=== PATIENT | male | born 1945 | race Caucasian/White ===

== ENCOUNTER → 2020-07-18 | Outpatient (CLI) | payer MEDICARE ==
[2020-07-18 12:06] LABS: HEMATOCRIT 56 % (40-54); HEMOGLOBIN 19.6 G/DL (13.3-17.7); MEAN CORPUSCULAR HEMOGLOBIN 33 PG (25-34); MEAN CORPUSCULAR HGB CONC 35 G/DL (32-36); MEAN CORPUSCULAR VOLUME 93 FL (80-99); MEAN PLATELET VOLUME 8.5 FL (7.4-10.4); PLATELET COUNT 197 10^3/uL (130-400); WHITE BLOOD COUNT 5.3 10^3/uL (4.3-11.0)
[2020-07-18 12:07] LABS: BASOPHILS % (AUTO) 1 % (0-10); EOSINOPHILS # (AUTO) 0.1 10^3/uL (0.0-0.3); EOSINOPHILS % (AUTO) 2 % (0-10); LYMPHOCYTES # (AUTO) 2.7 X 10^3 (1.0-4.0); LYMPHOCYTES % (AUTO) 50 % (12-44); MONOCYTES # (AUTO) 0.6 X 10^3 (0.0-1.0); MONOCYTES % (AUTO) 11 % (0-12); NEUTROPHILS # (AUTO) 1.9 X 10^3 (1.8-7.8); NEUTROPHILS % (AUTO) 35 % (42-75)
== END ==
LOC: LAB FS 11:37
PROVIDERS: ATTEND Internal Medicine Hematology & Oncology
DX: R71.8 Other abnormality of red blood cells (principal)
CPT/HCPCS: 36415; 85025

== ENCOUNTER 2020-08-20 12:58 | Outpatient (RCR) | payer MEDICARE ==
[2020-05-29 10:45] LABS: BASOPHILS % (AUTO) 1 % (0-10); EOSINOPHILS # (AUTO) 0.1 10^3/uL (0.0-0.3); EOSINOPHILS % (AUTO) 2 % (0-10); HEMATOCRIT 59 % (40-54); LYMPHOCYTES # (AUTO) 2.8 10^3/uL (1.0-4.0); LYMPHOCYTES % (AUTO) 42 % (12-44); MEAN CORPUSCULAR HEMOGLOBIN 32 pg (25-34); MEAN CORPUSCULAR HGB CONC 34 g/dL (32-36); MEAN CORPUSCULAR VOLUME 96 fL (80-99); MEAN PLATELET VOLUME 8.6 fL (9.0-12.2); MONOCYTES # (AUTO) 0.7 10^3/uL (0.0-1.0); MONOCYTES % (AUTO) 11 % (0-12); NEUTROPHILS # (AUTO) 2.9 10^3/uL (1.8-7.8); NEUTROPHILS % (AUTO) 45 % (42-75); PLATELET COUNT 175 10^3/uL (130-400); WHITE BLOOD COUNT 6.5 10^3/uL (4.3-11.0)
[2020-05-29 11:05] LABS: ALANINE AMINOTRANSFERASE 19 U/L (0-55); ALBUMIN 3.9 GM/DL (3.2-4.5); ALKALINE PHOSPHATASE 54 U/L (40-136); BILIRUBIN,TOTAL 1.1 MG/DL (0.1-1.0); BUN/CREATININE RATIO 7; CALCIUM 9.1 MG/DL (8.5-10.1); CARBON DIOXIDE 25 MMOL/L (21-32); CHLORIDE 99 MMOL/L (98-107); CREATININE SERUM 0.81 MG/DL (0.60-1.30); GFR ESTIMATED > 60; GLUCOSE 93 MG/DL (70-105); POTASSIUM 3.9 MMOL/L (3.6-5.0); SODIUM 136 MMOL/L (135-145); TOTAL PROTEIN 6.9 GM/DL (6.4-8.2)
[2020-08-20 13:10] LABS: BASOPHILS % (AUTO) 0 % (0-10); EOSINOPHILS # (AUTO) 0.1 10^3/uL (0.0-0.3); EOSINOPHILS % (AUTO) 2 % (0-10); HEMATOCRIT 56 % (40-54); HEMOGLOBIN 19.3 g/dL (13.3-17.7); LYMPHOCYTES # (AUTO) 2.5 10^3/uL (1.0-4.0); LYMPHOCYTES % (AUTO) 46 % (12-44); MEAN CORPUSCULAR HEMOGLOBIN 33 pg (25-34); MEAN CORPUSCULAR HGB CONC 34 g/dL (32-36); MEAN CORPUSCULAR VOLUME 96 fL (80-99); MEAN PLATELET VOLUME 8.3 fL (9.0-12.2); MONOCYTES # (AUTO) 0.7 10^3/uL (0.0-1.0); MONOCYTES % (AUTO) 12 % (0-12); NEUTROPHILS # (AUTO) 2.1 10^3/uL (1.8-7.8); NEUTROPHILS % (AUTO) 39 % (42-75); PLATELET COUNT 198 10^3/uL (130-400); WHITE BLOOD COUNT 5.5 10^3/uL (4.3-11.0)
== END 2020-08-24 13:56 | disposition home or self-care (01) ==
LOC: ONC 12:58
PROVIDERS: ATTEND Internal Medicine Hematology & Oncology
DX: D75.0 Familial erythrocytosis (principal)
CPT/HCPCS: 80053; 81270; 82728; 83540; 83550; 85025; G0463; 99195; 99213; 99214

== ENCOUNTER 2020-10-22 11:08 | Outpatient (RCR) | payer MEDICARE ==
[2020-10-22 11:19] LABS: BASOPHILS % (AUTO) 1 % (0-10); EOSINOPHILS # (AUTO) 0.1 10^3/uL (0.0-0.3); EOSINOPHILS % (AUTO) 2 % (0-10); HEMATOCRIT 53 % (40-54); HEMOGLOBIN 17.9 g/dL (13.3-17.7); LYMPHOCYTES # (AUTO) 2.6 10^3/uL (1.0-4.0); LYMPHOCYTES % (AUTO) 40 % (12-44); MEAN CORPUSCULAR HEMOGLOBIN 33 pg (25-34); MEAN CORPUSCULAR HGB CONC 34 g/dL (32-36); MEAN CORPUSCULAR VOLUME 98 fL (80-99); MEAN PLATELET VOLUME 8.5 fL (9.0-12.2); MONOCYTES # (AUTO) 0.7 10^3/uL (0.0-1.0); MONOCYTES % (AUTO) 10 % (0-12); NEUTROPHILS # (AUTO) 3.2 10^3/uL (1.8-7.8); NEUTROPHILS % (AUTO) 48 % (42-75); PLATELET COUNT 229 10^3/uL (130-400); WHITE BLOOD COUNT 6.6 10^3/uL (4.3-11.0)
== END 2020-11-25 | disposition home or self-care (01) ==
LOC: ONC 11:08
PROVIDERS: ATTEND Internal Medicine Hematology & Oncology
DX: D75.1 Secondary polycythemia (principal); I10 Essential (primary) hypertension; I48.0 Paroxysmal atrial fibrillation
CPT/HCPCS: 85025; 99195; 99213

== ENCOUNTER 2021-03-02 11:23 | Emergency (ER) | payer MEDICARE ==
[~2021-03-02] VITALS: Ht 175.3 cm; Wt 113.4 kg
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
--- NOTE | 2021-03-02 11:39 | ED Chest Pain ---
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 Started around 8:30 AM this morning when he was sitting and drinking coffee. It is in the center of his chest and radiates slightly left. It is a mild amount of discomfort which he says is more of a nagging ache. Nothing seems to make it better or worse and has been constant since it started. He said he is never really had pain like this before. When he had a stent in 2008, he said he had more numbness and no pain. Takes all of his medications at night, and has not had any this morning. Does not take any blood thinners that he knows of. Has never had a blood clot in his legs or lungs. When asked what he thinks is going on, he says he has frequent panic attacks and he feels like it could be related to that, and he also feels like he has reflux. Allergies and Home Medications Allergies Coded Allergies: No Known Drug Allergies (Unverified , 03/02/21) Patient Home Medication List Home Medication List Reviewed: Yes Review of Systems Review of Systems Constitutional: No chills, No fever EENTM: No Nose Congestion Respiratory: Denies Cough; Shortness of Air Cardiovascular: Chest Pain Gastrointestinal: Denies Abdominal Pain, Denies Diarrhea, Denies Nausea, Denies Vomiting Genitourinary: Denies Burning Musculoskeletal: no symptoms reported Skin: no symptoms reported Psychiatric/Neurological: Anxiety Endocrine: No Symptoms Reported Hematologic/Lymphatic: No Symptoms Reported All Other Systems Reviewed Negative Unless Noted: Yes Past Homgrns-Qcjdrp-Ywdjvd Hx Patient Social History Tobacco Use?: Yes Tobacco type used: Cigarettes Alcohol Use?: Yes Alcohol type: Beer Alcohol Frequency: Daily Past Medical History Surgeries: Yes Cardiac (stent) Physical Exam Vital Signs Vital Signs - First Documented 03/02/21 11:26 Temp 36.3 Pulse 93 Resp 17 B/P (MAP) 189/105 (133) Pulse Ox 94 O2 Delivery Room Air Capillary Refill : Height, Weight, BMI Height: '" Weight: lbs. oz. kg; BMI Method: General Appearance: No Apparent Distress, WD/WN HEENT: PERRL/EOMI, Normal ENT Inspection, Pharynx Normal Neck: Full Range of Motion, Normal Inspection, Non Tender, Supple Respiratory: Chest Non Tender, Lungs Clear, Normal Breath Sounds, No Accessory Muscle Use, No Respiratory Distress Cardiovascular: Regular Rate, Rhythm, Normal Peripheral Pulses, Other (lower extremity edema) Gastrointestinal: Normal Bowel Sounds, Non Tender, Soft; No Distended, No Guarding Extremity: Normal Capillary Refill, Normal Inspection, Normal Range of Motion, Non Tender, Pedal Edema Neurologic/Psychiatric: Alert, No Motor/Sensory Deficits, Normal Mood/Affect Skin: Normal Color, Warm/Dry, Other (bruising) Lymphatic: No Adenopathy Progress/Results/Core Measures Results/Orders Lab Results Laboratory Tests Test 03/02/21 11:35 03/02/21 13:30 Range/Units White Blood Count 5.8 4.3-11.0 10^3/uL Red Blood Count 5.73 H 4.30-5.52 10^6/uL Hemoglobin 18.6 H 13.3-17.7 g/dL Hematocrit 54 40-54 % Mean Corpuscular Volume 94 80-99 fL Mean Corpuscular Hemoglobin 32 25-34 pg Mean Corpuscular Hemoglobin Concent 35 32-36 g/dL Red Cell Distribution Width 12.4 10.0-14.5 % Platelet Count 230 130-400 10^3/uL Mean Platelet Volume 8.2 L 9.0-12.2 fL Immature Granulocyte % (Auto) 0 % Neutrophils (%) (Auto) 38 L 42-75 % Lymphocytes (%) (Auto) 50 H 12-44 % Monocytes (%) (Auto) 10 0-12 % Eosinophils (%) (Auto) 2 0-10 % Basophils (%) (Auto) 1 0-10 % Neutrophils # (Auto) 2.2 1.8-7.8 X 10^3 Lymphocytes # (Auto) 2.9 1.0-4.0 X 10^3 Monocytes # (Auto) 0.6 0.0-1.0 X 10^3 Eosinophils # (Auto) 0.1 0.0-0.3 10^3/uL Basophils # (Auto) 0.0 0.0-0.1 10^3/uL Immature Granulocyte # (Auto) 0.0 0.0-0.1 10^3/uL Prothrombin Time 14.1 12.2-14.7 SEC INR Comment 1.1 0.8-1.4 Activated Partial Thromboplast Time 33 24-35 SEC Sodium Level 139 135-145 MMOL/L Potassium Level 4.0 3.6-5.0 MMOL/L Chloride Level 101 98-107 MMOL/L Carbon Dioxide Level 27 21-32 MMOL/L Anion Gap 11 5-14 MMOL/L Blood Urea Nitrogen 6 L 7-18 MG/DL Creatinine 0.77 0.60-1.30 MG/DL Estimat Glomerular Filtration Rate 93 BUN/Creatinine Ratio 8 Glucose Level 99 70-105 MG/DL Calcium Level 9.1 8.5-10.1 MG/DL Corrected Calcium 8.9 8.5-10.1 MG/DL Magnesium Level 1.9 1.6-2.4 MG/DL Total Bilirubin 1.1 H 0.1-1.0 MG/DL Aspartate Amino Transf (AST/SGOT) 20 5-34 U/L Alanine Aminotransferase (ALT/SGPT) 13 0-55 U/L Alkaline Phosphatase 60 40-136 U/L Troponin I < 0.30 < 0.30 <0.30 NG/ML Pro-B-Type Natriuretic Peptide 160.0 H <75.0 PG/ML Total Protein 7.0 6.4-8.2 GM/DL Albumin 4.2 3.2-4.5 GM/DL My Orders Orders - ROQUE ALEJO MD Cbc With Automated Diff (03/02/21 11:39) Magnesium (03/02/21 11:39) Chest 1 View Ap/Pa Only (03/02/21 11:39) Ekg Tracing (03/02/21 11:39) Comprehensive Metabolic Panel (03/02/21 11:39) Protime With Inr (03/02/21 11:39) Partial Thromboplastin Time (03/02/21 11:39) Monitor-Rhythm Ecg Trace Only (03/02/21 11:39) Aspirin Chewable Tablet (Baby Aspirin Ch (03/02/21 11:45) Ed Iv/Invasive Line Start (03/02/21 11:39) Troponin I Fs (03/02/21 11:39) Probnp Fs (03/02/21 11:39) Antacid Suspension (Mylanta Suspension (03/02/21 11:45) Nitroglycerin Ointment (Nitrobid Ointme (03/02/21 11:45) Troponin I Fs (03/02/21 13:25) Albuterol/Ipra Inhalation Soln (Duoneb I (03/02/21 13:00) Medications Given in ED Current Medications Medications Dose Ordered Sig/Zay Route Start Time Stop Time Status Last Admin Dose Admin Al Hydrox/Mg Hydrox/Simethicone 30 ml ONCE ONCE PO 03/02/21 11:45 03/02/21 11:46 DC 03/02/21 11:52 30 ML Aspirin 324 mg ONCE ONCE PO 03/02/21 11:45 03/02/21 11:46 DC 03/02/21 11:51 324 MG Nitroglycerin 1 inch ONCE ONCE TOP 03/02/21 11:45 03/02/21 11:46 DC 03/02/21 11:52 1 INCH Vital Signs/I&O 03/02/21 11:26 Temp 36.3 Pulse 93 Resp 17 B/P (MAP) 189/105 (133) Pulse Ox 94 O2 Delivery Room Air Progress Progress Note : Progress Note 75-year-old male with above history coming in due to chest pain. ABCs were intact and vitals were stable on presentation. Physical exam with some lower extremity edema and some chronic bruising, but otherwise has equal pulses, normal neuro exam, and is well-appearing. EKG without any acute ischemic changes with no prior to compare to. Chest x-ray my interpretation without any acute abnormalities. Basic labs including cardiac biomarkers normal including negative troponin x2. Patient's pain has improved. He did have some wheezing towards the end of it and has not been diagnosed with COPD, but has had a longstanding history of smoking. Attempted a DuoNeb which did have some relief as well. I believe he is stable for discharge with outpatient follow-up with cardiology. He was sent home with strict return precautions Initial ECG Impression Date: Mar 02, 2021 Initial ECG Impression Time: 11:20 Initial ECG Rate: 92 Initial ECG Rhythm: Normal Sinus Comment Narrow QRS, normal axis, no significant ST changes or T wave abnormalities, there is some baseline wander and artifact, no prior EKG to compare to Diagnostic Imaging Diagonstic Imaging: Xray Plain Films/CT/US/NM/MRI: chest Comments NAME: CEFERINO CARVALHO MED REC#: [id number] PT STATUS: REG ER : 1945 PHYSICIAN: ROQUE ALEJO MD ADMIT DATE: 03/02/21/ER FS Signed Date of Exam:03/02/21 CHEST 1 VIEW AP/PA ONLY INDICATION: Chest pain. FINDINGS: The heart size, mediastinal configuration, and pulmonary vascularity are within normal limits. There is no pleural effusion, pneumothorax, or pneumonia. The osseous structures are unremarkable. IMPRESSION: No acute cardiopulmonary abnormality. Dictated by: Dictated on workstation # [id number] Dict: 03/02/21 1203 Trans: 03/02/[address] [facility] [id number] Interpreted by: SHE PIRES MD Electronically signed by: SHE PIRES MD 03/02/21 1211 Departure Impression Primary Impression: Chest pain Qualified Codes: R07.9 - Chest pain, unspecified Disposition: HOME, SELF-CARE Condition: Stable Departure-Patient Inst. Decision time for Depature: 14:20 Referrals: MIQUEL MORALES JR, MD SELF,REHAN CHANEY (PCP/Family) Primary Care Physician Patient Instructions: Chest Pain (DC) Add. Discharge Instructions: Please follow-up with Dr. Morales here in [place] who is a tool and die manager that comes here some days. I would like you to be followed up within the next week or so. If you continue to have worsening pain call your doctor right away or come back to the ER. Scripts Pantoprazole Sodium (Pantoprazole Sodium) 40 Mg Tablet. 40 MG PO DAILY for 30 Days, #30 TAB Prov: ROQUE ALEJO MD 03/02/21 ROQUE ALEJO MD Mar 02, 2021 11:39
[2021-03-02] MEDS ORDERED: NITROGLYCERIN 2% OINT 1 GM UNIT DOSE PACKET TOP ONE (11:45)
[2021-03-02] MEDS ORDERED: ANTACID SUSP 30 ML UDC (MYLANTA) PO ONE (11:45)
[2021-03-02] MEDS ORDERED: ASPIRIN 81 MG CHEW (CHILDREN'S ASA) PO ONE (11:45)
[2021-03-02 11:48] LABS: HEMATOCRIT 54 % (40-54); HEMOGLOBIN 18.6 g/dL (13.3-17.7); MEAN CORPUSCULAR HEMOGLOBIN 32 pg (25-34); MEAN CORPUSCULAR HGB CONC 35 g/dL (32-36); MEAN CORPUSCULAR VOLUME 94 fL (80-99); MEAN PLATELET VOLUME 8.2 fL (9.0-12.2); NEUTROPHILS % (AUTO) 38 % (42-75); PLATELET COUNT 230 10^3/uL (130-400); WHITE BLOOD COUNT 5.8 10^3/uL (4.3-11.0)
[2021-03-02 11:49] LABS: BASOPHILS % (AUTO) 1 % (0-10); EOSINOPHILS # (AUTO) 0.1 10^3/uL (0.0-0.3); EOSINOPHILS % (AUTO) 2 % (0-10); LYMPHOCYTES # (AUTO) 2.9 X 10^3 (1.0-4.0); LYMPHOCYTES % (AUTO) 50 % (12-44); MONOCYTES # (AUTO) 0.6 X 10^3 (0.0-1.0); MONOCYTES % (AUTO) 10 % (0-12); NEUTROPHILS # (AUTO) 2.2 X 10^3 (1.8-7.8)
[2021-03-02 11:58] LABS: INR 1.1 (0.8-1.4); PROTHROMBIN TIME PATIENT 14.1 SEC (12.2-14.7)
--- NOTE | 2021-03-02 12:10 | Diagnostic Imaging Report ---
INDICATION: Chest pain. FINDINGS: The heart size, mediastinal configuration, and pulmonary vascularity are within normal limits. There is no pleural effusion, pneumothorax, or pneumonia. The osseous structures are unremarkable. IMPRESSION: No acute cardiopulmonary abnormality. Dictated by: Dictated on workstation # [id number]
[2021-03-02 12:11] LABS: ALBUMIN 4.2 GM/DL (3.2-4.5); BILIRUBIN,TOTAL 1.1 MG/DL (0.1-1.0); CALCIUM 9.1 MG/DL (8.5-10.1); CREATININE SERUM 0.77 MG/DL (0.60-1.30); MAGNESIUM 1.9 MG/DL (1.6-2.4)
[2021-03-02] MEDS ORDERED: RT-ALBUTEROL/IPRATROPIUM 3 ML (DUONEB) VIAL INH ONE (13:00)
[2021-03-02] MEDS ORDERED: PANT40TA52 PO (14:16)
[2021-03-02 14:35] VITALS: BP 158/87
== END 2021-03-02 14:35 | disposition home or self-care (01) ==
LOC: EDUNIT# 11:23 → ER FS 11:25
DX: R07.9 Chest pain, unspecified (principal); I10 Essential (primary) hypertension; Z72.0 Tobacco use
CPT/HCPCS: 36415; 71045; 80053; 83735; 83880; 84484; 85025; 85610; 85730; 93005; 93041

== ENCOUNTER → 2021-12-05 | Outpatient (CLI) | payer MEDICARE ==
[~2021-12-05] MED LIST: PANT40TA52 PO
== END ==
LOC: CARDFS 13:31
PROVIDERS: ATTEND Internal Medicine Cardiovascular Disease
DX: I51.7 Cardiomegaly (principal)
CPT/HCPCS: 93306

== ENCOUNTER 2021-12-06 14:43 | Outpatient (RCR) | payer MEDICARE ==
[2021-12-06 15:08] LABS: BASOPHILS % (AUTO) 1 % (0-10); EOSINOPHILS # (AUTO) 0.1 10^3/uL (0.0-0.3); EOSINOPHILS % (AUTO) 1 % (0-10); HEMATOCRIT 57 % (40-54); HEMOGLOBIN 19.3 g/dL (13.3-17.7); LYMPHOCYTES # (AUTO) 2.4 10^3/uL (1.0-4.0); LYMPHOCYTES % (AUTO) 40 % (12-44); MEAN CORPUSCULAR HEMOGLOBIN 33 pg (25-34); MEAN CORPUSCULAR HGB CONC 34 g/dL (32-36); MEAN CORPUSCULAR VOLUME 96 fL (80-99); MEAN PLATELET VOLUME 8.7 fL (9.0-12.2); MONOCYTES # (AUTO) 0.6 10^3/uL (0.0-1.0); MONOCYTES % (AUTO) 10 % (0-12); NEUTROPHILS # (AUTO) 2.9 10^3/uL (1.8-7.8); NEUTROPHILS % (AUTO) 48 % (42-75); PLATELET COUNT 178 10^3/uL (130-400); WHITE BLOOD COUNT 6.1 10^3/uL (4.3-11.0)
[2021-12-06 15:28] LABS: ALBUMIN 3.7 GM/DL (3.2-4.5); BILIRUBIN,TOTAL 1.2 MG/DL (0.1-1.0); CALCIUM 9.3 MG/DL (8.5-10.1); CREATININE SERUM 0.73 MG/DL (0.60-1.30); POTASSIUM 3.7 MMOL/L (3.6-5.0); TOTAL PROTEIN 6.9 GM/DL (6.4-8.2)
== END 2021-12-09 | disposition home or self-care (01) ==
LOC: ONC 14:43
PROVIDERS: ATTEND Internal Medicine Hematology & Oncology
DX: D75.1 Secondary polycythemia (principal); I10 Essential (primary) hypertension
CPT/HCPCS: 80053; 81270; 82668; 85025; 99195; G0463; 36415

== ENCOUNTER → 2021-12-06 | Outpatient (CLI) | payer MEDICARE ==
[2021-12-06 14:44] LABS: CHOLESTEROL 171 MG/DL (< 200); HDL CHOLESTEROL 68 MG/DL (40-60); TRIGLYCERIDES 70 MG/DL (<150); VLDL CHOLESTEROL 14 MG/DL (5-40)
== END ==
LOC: LAB FS 12:16
PROVIDERS: ATTEND Internal Medicine Cardiovascular Disease
DX: I25.10 Atherosclerotic heart disease of native coronary artery without angina pectoris (principal); I10 Essential (primary) hypertension; Z72.0 Tobacco use
CPT/HCPCS: 36415; 80061; 82728; 83540; 83550

== ENCOUNTER → 2021-12-10 | Outpatient (CLI) | payer MEDICARE ==
[~2021-12-10] MED LIST changes: +CATHETER FLUSH 10 ML SYR IVP PRN; +REGADENOSON 0.4 MG/5 ML SYR (LEXISCAN) IV ONE
[2021-12-10 08:55] VITALS: BP 153/99
--- NOTE | 2021-12-12 11:21 | STRESS TEST ---
RESTING AND POST REGADENOSON TECHNETIUM-99M TETROFOSMIN SPECT CT IMAGING ORDERING PHYSICIAN: Werner Davila MD, MONIQUE, FACP, FACC. PRIMARY PHYSICIAN: ____. CLINICAL DIAGNOSIS: Shortness of breath. Baseline images were carried out after injection of 11 mCi of technetium-99m tetrofosmin. This was followed by 0.4 mg of regadenoson and 29.2 mCi of technetium-99m tetrofosmin for stress imaging. The electrocardiogram showed sinus rhythm with isolated premature atrial and ventricular contractions. It did not change significantly with regadenoson infusion. The patient noted shortness of breath following regadenoson infusion, which resolved in a few minutes. Review of images at rest and following stress does not indicate any significant perfusion defects consistent with myocardial ischemia or infarction. Gated images showed normal global left ventricular systolic function with normal regional wall motion. Left ventricular ejection fraction is calculated to be 44%. Subjectively, it appears higher than that. CONCLUSION: 1. No evidence of any significant myocardial ischemia or infarction in this study. 2. Normal regional wall motion. 3. Normal global left ventricular systolic function. Left ventricular ejection fraction is calculated to be 44%, but subjectively appears higher than that. Job ID: [id number] DocumentID: [id number] Dictated Date: 12/12/2021 08:30:10 Home Office Claim Specialist Date: 12/12/2021 09:16:00 Dictated By: WERNER DAVILA MD; MONIQUE; ASHANTIP; FACC;
== END ==
LOC: CARD 07:45
PROVIDERS: ATTEND Internal Medicine Cardiovascular Disease
DX: R06.09 Other forms of dyspnea (principal)
CPT/HCPCS: 78452; 93017; A9502

== ENCOUNTER → 2021-12-25 | Outpatient (CLI) | payer MEDICARE ==
[~2021-12-25] MED LIST changes: -CATHETER FLUSH 10 ML SYR IVP PRN; -REGADENOSON 0.4 MG/5 ML SYR (LEXISCAN) IV ONE
[2021-12-25 13:48] LABS: BASOPHILS % (AUTO) 1 % (0-10); EOSINOPHILS # (AUTO) 0.1 10^3/uL (0.0-0.3); EOSINOPHILS % (AUTO) 2 % (0-10); HEMATOCRIT 54 % (40-54); HEMOGLOBIN 18.8 g/dL (13.3-17.7); LYMPHOCYTES # (AUTO) 2.7 10^3/uL (1.0-4.0); LYMPHOCYTES % (AUTO) 48 % (12-44); MEAN CORPUSCULAR HEMOGLOBIN 33 pg (25-34); MEAN CORPUSCULAR HGB CONC 35 g/dL (32-36); MEAN CORPUSCULAR VOLUME 95 fL (80-99); MEAN PLATELET VOLUME 8.4 fL (9.0-12.2); MONOCYTES # (AUTO) 0.6 10^3/uL (0.0-1.0); MONOCYTES % (AUTO) 10 % (0-12); NEUTROPHILS # (AUTO) 2.3 10^3/uL (1.8-7.8); NEUTROPHILS % (AUTO) 40 % (42-75); PLATELET COUNT 178 10^3/uL (130-400); WHITE BLOOD COUNT 5.7 10^3/uL (4.3-11.0)
[2021-12-25 14:17] LABS: CALCIUM 9.2 MG/DL (8.5-10.1); CREATININE SERUM 0.82 MG/DL (0.60-1.30); POTASSIUM 4.3 MMOL/L (3.6-5.0); TOTAL PROTEIN 6.9 GM/DL (6.4-8.2)
== END ==
LOC: LAB FS 13:23
PROVIDERS: ATTEND Internal Medicine Hematology & Oncology
DX: R71.8 Other abnormality of red blood cells (principal)
CPT/HCPCS: 36415; 80053; 82728; 83540; 83550; 85025

== ENCOUNTER 2022-01-01 13:02 | Outpatient (RCR) | payer MEDICARE | END 2022-01-08 | disposition home or self-care (01) | LOC: ONC 13:02 | PROVIDERS: ATTEND Internal Medicine Hematology & Oncology | DX: D75.1 Secondary polycythemia (principal); I10 Essential (primary) hypertension | CPT/HCPCS: 99195 ==

== ENCOUNTER → 2022-01-08 | Outpatient (CLI) | payer MEDICARE ==
[2022-01-08 11:43] LABS: BASOPHILS % (AUTO) 1 % (0-10); EOSINOPHILS # (AUTO) 0.1 10^3/uL (0.0-0.3); EOSINOPHILS % (AUTO) 2 % (0-10); HEMATOCRIT 52 % (40-54); HEMOGLOBIN 18.4 g/dL (13.3-17.7); LYMPHOCYTES # (AUTO) 2.9 10^3/uL (1.0-4.0); LYMPHOCYTES % (AUTO) 57 % (12-44); MEAN CORPUSCULAR HEMOGLOBIN 33 pg (25-34); MEAN CORPUSCULAR HGB CONC 35 g/dL (32-36); MEAN CORPUSCULAR VOLUME 94 fL (80-99); MEAN PLATELET VOLUME 8.7 fL (9.0-12.2); MONOCYTES # (AUTO) 0.5 10^3/uL (0.0-1.0); MONOCYTES % (AUTO) 10 % (0-12); NEUTROPHILS # (AUTO) 1.6 10^3/uL (1.8-7.8); NEUTROPHILS % (AUTO) 31 % (42-75); PLATELET COUNT 194 10^3/uL (130-400); WHITE BLOOD COUNT 5.2 10^3/uL (4.3-11.0)
[2022-01-08 12:31] LABS: CALCIUM 8.9 MG/DL (8.5-10.1); CREATININE SERUM 0.82 MG/DL (0.60-1.30); POTASSIUM 4.2 MMOL/L (3.6-5.0)
[2022-01-08 12:32] LABS: ALBUMIN 3.9 GM/DL (3.2-4.5); TOTAL PROTEIN 6.8 GM/DL (6.4-8.2)
== END ==
LOC: LAB FS 11:05
PROVIDERS: ATTEND Internal Medicine Hematology & Oncology
DX: M35.3 Polymyalgia rheumatica (principal)
CPT/HCPCS: 36415; 80053; 82728; 83540; 83550; 85025

== ENCOUNTER → 2022-01-27 | Outpatient (CLI) | payer MEDICARE ==
[2022-01-27 13:54] LABS: BASOPHILS % (AUTO) 1 % (0-10); EOSINOPHILS # (AUTO) 0.1 10^3/uL (0.0-0.3); EOSINOPHILS % (AUTO) 2 % (0-10); HEMATOCRIT 52 % (40-54); LYMPHOCYTES % (AUTO) 53 % (12-44); MEAN CORPUSCULAR HEMOGLOBIN 32 pg (25-34); MEAN CORPUSCULAR HGB CONC 34 g/dL (32-36); MEAN CORPUSCULAR VOLUME 94 fL (80-99); MONOCYTES # (AUTO) 0.6 10^3/uL (0.0-1.0); MONOCYTES % (AUTO) 10 % (0-12); NEUTROPHILS % (AUTO) 35 % (42-75); PLATELET COUNT 175 10^3/uL (130-400); WHITE BLOOD COUNT 5.8 10^3/uL (4.3-11.0)
[2022-01-27 14:25] LABS: POTASSIUM 3.8 MMOL/L (3.6-5.0)
[2022-01-27 14:26] LABS: BILIRUBIN,TOTAL 1.3 MG/DL (0.1-1.0); CREATININE SERUM 0.8 MG/DL (0.60-1.30); TOTAL PROTEIN 6.9 GM/DL (6.4-8.2)
== END ==
LOC: LAB FS 13:11
PROVIDERS: ATTEND Internal Medicine Hematology & Oncology
DX: M35.3 Polymyalgia rheumatica (principal)
CPT/HCPCS: 36415; 80053; 82728; 83540; 83550; 85025

== ENCOUNTER 2022-01-29 12:49 | Outpatient (RCR) | payer MEDICARE | END 2022-02-08 | disposition home or self-care (01) | LOC: ONC 12:49 | PROVIDERS: ATTEND Internal Medicine Hematology & Oncology | DX: D75.1 Secondary polycythemia (principal); I10 Essential (primary) hypertension; I25.10 Atherosclerotic heart disease of native coronary artery without angina pectoris; I48.0 Paroxysmal atrial fibrillation; E78.5 Hyperlipidemia, unspecified; G47.33 Obstructive sleep apnea (adult) (pediatric); J44.9 Chronic obstructive pulmonary disease, unspecified; F17.200 Nicotine dependence, unspecified, uncomplicated | CPT/HCPCS: 99195 ==

== ENCOUNTER → 2022-03-04 | Outpatient (CLI) | payer MEDICARE ==
[2022-03-04 11:53] LABS: BASOPHILS % (AUTO) 1 % (0-10); EOSINOPHILS # (AUTO) 0.1 10^3/uL (0.0-0.3); EOSINOPHILS % (AUTO) 2 % (0-10); HEMATOCRIT 53 % (40-54); HEMOGLOBIN 18.1 g/dL (13.3-17.7); LYMPHOCYTES # (AUTO) 2.7 10^3/uL (1.0-4.0); LYMPHOCYTES % (AUTO) 51 % (12-44); MEAN CORPUSCULAR HEMOGLOBIN 31 pg (25-34); MEAN CORPUSCULAR HGB CONC 34 g/dL (32-36); MEAN CORPUSCULAR VOLUME 92 fL (80-99); MEAN PLATELET VOLUME 8.7 fL (9.0-12.2); MONOCYTES # (AUTO) 0.6 10^3/uL (0.0-1.0); MONOCYTES % (AUTO) 11 % (0-12); NEUTROPHILS # (AUTO) 1.8 10^3/uL (1.8-7.8); NEUTROPHILS % (AUTO) 35 % (42-75); PLATELET COUNT 205 10^3/uL (130-400); WHITE BLOOD COUNT 5.3 10^3/uL (4.3-11.0)
[2022-03-04 12:18] LABS: BILIRUBIN,TOTAL 1.2 MG/DL (0.1-1.0); CALCIUM 9.6 MG/DL (8.5-10.1); CREATININE SERUM 0.88 MG/DL (0.60-1.30); POTASSIUM 4.2 MMOL/L (3.6-5.0); TOTAL PROTEIN 6.7 GM/DL (6.4-8.2)
[2022-03-04 12:19] LABS: ALBUMIN 4.1 GM/DL (3.2-4.5)
== END ==
LOC: LAB FS 11:33
PROVIDERS: ATTEND Internal Medicine Hematology & Oncology
DX: D75.1 Secondary polycythemia (principal)
CPT/HCPCS: 36415; 80053; 82728; 83540; 83550; 85025

== ENCOUNTER 2022-03-05 13:06 | Outpatient (RCR) | payer MEDICARE | END 2022-03-11 | disposition home or self-care (01) | LOC: ONC 13:06 | PROVIDERS: ATTEND Internal Medicine Hematology & Oncology | DX: D75.1 Secondary polycythemia (principal); I10 Essential (primary) hypertension | CPT/HCPCS: 99213 ==

== ENCOUNTER → 2022-03-20 | Outpatient (CLI) | payer MEDICARE ==
--- NOTE | 2022-03-20 11:33 | Diagnostic Imaging Report ---
INDICATION: Abdominal pain. FINDINGS: The lung bases are clear. The bowel gas pattern is nonspecific. There is no free air. There are no abnormal abdominal calcifications. IMPRESSION: Nonspecific bowel gas pattern. Dictated by: Dictated on workstation # [id number]
--- NOTE | 2022-03-20 13:01 | Diagnostic Imaging Report ---
INDICATION: COPD. TECHNIQUE: PA and lateral views of the chest are obtained with comparison made to study of 03/02/2021. FINDINGS: Heart size and pulmonary vascularity are within normal limits, and the lungs are clear, bilaterally. IMPRESSION: Unremarkable chest. Dictated by: Dictated on workstation # [id number]
== END ==
LOC: RAD FS 11:06
PROVIDERS: ATTEND Family Medicine
DX: R10.84 Generalized abdominal pain (principal); J44.9 Chronic obstructive pulmonary disease, unspecified
CPT/HCPCS: 71046; 74018

== ENCOUNTER → 2022-03-27 | Outpatient (CLI) | payer MEDICARE ==
[~2022-03-27] MED LIST changes: +CATHETER FLUSH 10 ML SYR IV PRN; +HOLD METFORMIN - RECEIVED CONTRAST 20 ML VIAL IV SCH; +IOHEXOL 350 MG/ML 100 ML (OMNIPAQUE 350) VIAL IV ONE; +NS 100 ML (IVPB) BAG IV ONE
[2022-03-27 10:39] LABS: ALBUMIN 3.9 GM/DL (3.2-4.5); BILIRUBIN,TOTAL 1.3 MG/DL (0.1-1.0); CALCIUM 9.1 MG/DL (8.5-10.1); CREATININE SERUM 0.88 MG/DL (0.60-1.30); POTASSIUM 3.6 MMOL/L (3.6-5.0); TOTAL PROTEIN 6.6 GM/DL (6.4-8.2)
--- NOTE | 2022-03-27 12:58 | Diagnostic Imaging Report ---
PROCEDURE: CT abdomen and pelvis with contrast. TECHNIQUE: Multiple contiguous axial images were obtained through the abdomen and pelvis after administration of intravenous contrast. Auto Exposure Controls were utilized during the CT exam to meet ALARA standards for radiation dose reduction. All CT scans use one or more of the following dose optimizing techniques: Automated exposure control, MA and/or KvP adjustment based on patient size and exam type or iterative reconstruction. INDICATION: Abdominal pain. FINDINGS: There is an unruptured and nonacute fusiform infrarenal abdominal aortic aneurysm extending 5 cm longitudinal with maximal transverse dimensions 4.4 x 4.3 cm measured at the takeoff of the patent RICH. Aneurysmal neck/commencement below the lowest renal artery is 3.7 cm and terminates just above the bifurcation. Common iliacs are mildly ectatic but nonaneurysmal. 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 External iliacs and femoral arteries where visualized are patent and normal in caliber. Some atherosclerotic ectasia of the SMA diffusely measures 1.3 cm at its origin. It had no focal aneurysmal dilatation, and it is widely patent. Celiac and its primary branches are unremarkable. The RICH is patent. No end organ ischemia. No luminal obstruction. No intra- or extra-peritoneal hemorrhage. No dissection or acute appearing arterial pathology. Liver, gallbladder, bile ducts, spleen, adrenals, and pancreas are unremarkable. The kidneys are unobstructed. There is no ileus or bowel obstruction. There is no appendicitis. Urinary bladder is thickened but is poorly distended and likely on that basis. There is some stranding of the bilateral perinephric retroperitoneal fat, greater left. This may be chronic scarring. Kidneys themselves showed normal enhancement and are unobstructed and appeared nonacute. No abnormal fecal loading. No pneumatosis. No free gas. IMPRESSION: 1. Unruptured atherosclerotic fusiform infrarenal abdominal aortic aneurysm, mild aneurysmal dilatation of the left internal iliac, and some mild diffuse ectasia of the atherosclerotic SMA. No vessel rupture, dissection, mural hematoma, obstruction, or findings of end organ ischemia. 2. Some stranding of the perinephric fat with normal appearance of the kidneys. This may reflect some chronic scarring. No convincing acute abnormality at today's study. 3. Thickening of the urinary bladder's wall, probably physiologic owing to its poor distention, but this admittedly limits the bladder's evaluation. Dictated by: Dictated on workstation # [id number]
== END ==
LOC: RAD FS 09:54
PROVIDERS: ATTEND Family Medicine
DX: I71.43 Infrarenal abdominal aortic aneurysm, without rupture (principal); N32.9 Bladder disorder, unspecified
CPT/HCPCS: 36415; 74177; 80053; Q9967

== ENCOUNTER → 2022-04-01 | Outpatient (CLI) | payer MEDICARE ==
[~2022-04-01] MED LIST changes: -CATHETER FLUSH 10 ML SYR IV PRN; -HOLD METFORMIN - RECEIVED CONTRAST 20 ML VIAL IV SCH; -IOHEXOL 350 MG/ML 100 ML (OMNIPAQUE 350) VIAL IV ONE; -NS 100 ML (IVPB) BAG IV ONE
[2022-04-01 14:01] LABS: BASOPHILS % (AUTO) 1 % (0-10); EOSINOPHILS # (AUTO) 0.1 10^3/uL (0.0-0.3); EOSINOPHILS % (AUTO) 2 % (0-10); HEMATOCRIT 54 % (40-54); HEMOGLOBIN 18.2 g/dL (13.3-17.7); LYMPHOCYTES % (AUTO) 51 % (12-44); MEAN CORPUSCULAR HEMOGLOBIN 30 pg (25-34); MEAN CORPUSCULAR HGB CONC 34 g/dL (32-36); MEAN CORPUSCULAR VOLUME 90 fL (80-99); MEAN PLATELET VOLUME 8.9 fL (9.0-12.2); MONOCYTES # (AUTO) 0.6 10^3/uL (0.0-1.0); MONOCYTES % (AUTO) 10 % (0-12); NEUTROPHILS # (AUTO) 2.2 10^3/uL (1.8-7.8); NEUTROPHILS % (AUTO) 37 % (42-75); PLATELET COUNT 196 10^3/uL (130-400); WHITE BLOOD COUNT 5.9 10^3/uL (4.3-11.0)
[2022-04-01 14:25] LABS: CALCIUM 9.4 MG/DL (8.5-10.1); CREATININE SERUM 0.83 MG/DL (0.60-1.30); POTASSIUM 3.8 MMOL/L (3.6-5.0)
[2022-04-01 14:26] LABS: ALBUMIN 4.1 GM/DL (3.2-4.5); BILIRUBIN,TOTAL 1.4 MG/DL (0.1-1.0); TOTAL PROTEIN 7.1 GM/DL (6.4-8.2)
== END ==
LOC: LAB FS 13:30
PROVIDERS: ATTEND Internal Medicine Hematology & Oncology
DX: D75.1 Secondary polycythemia (principal); R71.8 Other abnormality of red blood cells
CPT/HCPCS: 36415; 80053; 83540; 83550; 85025

== ENCOUNTER 2022-04-07 13:46 | Outpatient (RCR) | payer MEDICARE | END 2022-04-08 | disposition home or self-care (01) | LOC: ONC 13:46 | PROVIDERS: ATTEND Internal Medicine Hematology & Oncology | DX: D75.1 Secondary polycythemia (principal); I10 Essential (primary) hypertension | CPT/HCPCS: 99195 ==

== ENCOUNTER 2022-04-28 11:43 | Outpatient (RCR) | payer MEDICARE ==
[2022-04-09 14:24] LABS: BASOPHILS % (AUTO) 0 % (0-10); EOSINOPHILS # (AUTO) 0.1 10^3/uL (0.0-0.3); EOSINOPHILS % (AUTO) 2 % (0-10); HEMATOCRIT 50 % (40-54); HEMOGLOBIN 16.8 g/dL (13.3-17.7); LYMPHOCYTES # (AUTO) 2.8 10^3/uL (1.0-4.0); LYMPHOCYTES % (AUTO) 48 % (12-44); MEAN CORPUSCULAR HEMOGLOBIN 31 pg (25-34); MEAN CORPUSCULAR HGB CONC 34 g/dL (32-36); MEAN CORPUSCULAR VOLUME 91 fL (80-99); MONOCYTES # (AUTO) 0.6 10^3/uL (0.0-1.0); MONOCYTES % (AUTO) 10 % (0-12); NEUTROPHILS # (AUTO) 2.3 10^3/uL (1.8-7.8); NEUTROPHILS % (AUTO) 40 % (42-75); PLATELET COUNT 163 10^3/uL (130-400); WHITE BLOOD COUNT 5.7 10^3/uL (4.3-11.0)
[2022-04-09 14:59] LABS: ALBUMIN 3.6 GM/DL (3.2-4.5); BILIRUBIN,TOTAL 1.4 MG/DL (0.1-1.0); CALCIUM 9.1 MG/DL (8.5-10.1); CREATININE SERUM 0.78 MG/DL (0.60-1.30); POTASSIUM 3.6 MMOL/L (3.6-5.0); TOTAL PROTEIN 6.3 GM/DL (6.4-8.2)
[2022-04-14 11:48] LABS: BASOPHILS % (AUTO) 1 % (0-10); EOSINOPHILS # (AUTO) 0.1 10^3/uL (0.0-0.3); EOSINOPHILS % (AUTO) 2 % (0-10); HEMATOCRIT 46 % (40-54); HEMOGLOBIN 15.5 g/dL (13.3-17.7); LYMPHOCYTES # (AUTO) 2.2 10^3/uL (1.0-4.0); LYMPHOCYTES % (AUTO) 47 % (12-44); MEAN CORPUSCULAR HEMOGLOBIN 30 pg (25-34); MEAN CORPUSCULAR HGB CONC 34 g/dL (32-36); MEAN CORPUSCULAR VOLUME 90 fL (80-99); MONOCYTES # (AUTO) 0.5 10^3/uL (0.0-1.0); MONOCYTES % (AUTO) 11 % (0-12); NEUTROPHILS # (AUTO) 1.9 10^3/uL (1.8-7.8); NEUTROPHILS % (AUTO) 40 % (42-75); PLATELET COUNT 176 10^3/uL (130-400); WHITE BLOOD COUNT 4.7 10^3/uL (4.3-11.0)
[2022-04-14 11:57] LABS: CALCIUM 8.9 MG/DL (8.5-10.1); CREATININE SERUM 0.74 MG/DL (0.60-1.30); POTASSIUM 3.6 MMOL/L (3.6-5.0)
[2022-04-28 12:15] LABS: BASOPHILS % (AUTO) 0 % (0-10); EOSINOPHILS # (AUTO) 0.1 10^3/uL (0.0-0.3); EOSINOPHILS % (AUTO) 2 % (0-10); HEMATOCRIT 47 % (40-54); HEMOGLOBIN 15.8 g/dL (13.3-17.7); LYMPHOCYTES % (AUTO) 42 % (12-44); MEAN CORPUSCULAR HEMOGLOBIN 30 pg (25-34); MEAN CORPUSCULAR HGB CONC 34 g/dL (32-36); MEAN CORPUSCULAR VOLUME 91 fL (80-99); MONOCYTES # (AUTO) 0.6 10^3/uL (0.0-1.0); MONOCYTES % (AUTO) 12 % (0-12); NEUTROPHILS # (AUTO) 2.1 10^3/uL (1.8-7.8); NEUTROPHILS % (AUTO) 44 % (42-75); PLATELET COUNT 172 10^3/uL (130-400); WHITE BLOOD COUNT 4.9 10^3/uL (4.3-11.0)
[2022-04-28 12:29] LABS: ALBUMIN 3.5 GM/DL (3.2-4.5); BILIRUBIN,TOTAL 1.5 MG/DL (0.1-1.0); CREATININE SERUM 0.84 MG/DL (0.60-1.30); POTASSIUM 3.9 MMOL/L (3.6-5.0); TOTAL PROTEIN 6.3 GM/DL (6.4-8.2)
== END 2022-05-09 | disposition home or self-care (01) ==
LOC: ONC 11:43
PROVIDERS: ATTEND Internal Medicine Hematology & Oncology
DX: D75.1 Secondary polycythemia (principal); I10 Essential (primary) hypertension
CPT/HCPCS: 36415; 80048; 80053; 85025; 99195

== ENCOUNTER → 2022-05-20 | Outpatient (CLI) | payer MEDICARE ==
[~2022-05-20] MED LIST changes: +RT-ALBUTEROL SULF 2.5 MG/3 ML PRE-MIX VIAL INH ONE
== END ==
LOC: RT 10:45
PROVIDERS: ATTEND Family Medicine
DX: J44.9 Chronic obstructive pulmonary disease, unspecified (principal)
CPT/HCPCS: 94060; 94726; 94729

== ENCOUNTER 2022-05-28 13:46 | Outpatient (RCR) | payer MEDICARE ==
[~2022-05-28 13:46] MED LIST changes: -RT-ALBUTEROL SULF 2.5 MG/3 ML PRE-MIX VIAL INH ONE
[2022-05-28 14:20] LABS: BASOPHILS % (AUTO) 1 % (0-10); EOSINOPHILS # (AUTO) 0.2 10^3/uL (0.0-0.3); EOSINOPHILS % (AUTO) 3 % (0-10); HEMATOCRIT 47 % (40-54); HEMOGLOBIN 15.6 g/dL (13.3-17.7); LYMPHOCYTES # (AUTO) 2.3 10^3/uL (1.0-4.0); LYMPHOCYTES % (AUTO) 47 % (12-44); MEAN CORPUSCULAR HEMOGLOBIN 30 pg (25-34); MEAN CORPUSCULAR HGB CONC 33 g/dL (32-36); MEAN CORPUSCULAR VOLUME 90 fL (80-99); MONOCYTES # (AUTO) 0.5 10^3/uL (0.0-1.0); MONOCYTES % (AUTO) 10 % (0-12); NEUTROPHILS # (AUTO) 1.9 10^3/uL (1.8-7.8); NEUTROPHILS % (AUTO) 38 % (42-75); PLATELET COUNT 165 10^3/uL (130-400); WHITE BLOOD COUNT 4.9 10^3/uL (4.3-11.0)
[2022-05-28 14:46] LABS: ALBUMIN 3.5 GM/DL (3.2-4.5); BILIRUBIN,TOTAL 1.3 MG/DL (0.1-1.0); CALCIUM 8.7 MG/DL (8.5-10.1); CREATININE SERUM 0.76 MG/DL (0.60-1.30); POTASSIUM 3.9 MMOL/L (3.6-5.0); TOTAL PROTEIN 6.2 GM/DL (6.4-8.2)
== END 2022-06-08 | disposition home or self-care (01) ==
LOC: ONC 13:46
PROVIDERS: ATTEND Internal Medicine Hematology & Oncology
DX: D75.1 Secondary polycythemia (principal); I10 Essential (primary) hypertension
CPT/HCPCS: 36415; 80053; 85025

== ENCOUNTER 2022-06-24 10:48 | Day surgery (SDC) | payer MEDICARE ==
[2022-06-24] VITALS (13 sets, daily range): BP systolic 118–198; BP diastolic 64–108
[~2022-06-24] VITALS: Ht 172.7 cm; Wt 105.0 kg
[2022-06-24] MEDS ORDERED: NS IV 1000 ML 1,000 ML IV SCH ×3 (11:00→17:30)
[2022-06-24] MEDS ORDERED: NS IV 1000 ML 1,000 ML ONE (11:01)
[2022-06-24] MEDS ORDERED: HEParin (CATH LAB) 2,000 ML IV ONE (11:01)
[2022-06-24 11:30] LABS: HEMATOCRIT 48 % (40-54); HEMOGLOBIN 15.9 g/dL (13.3-17.7); MEAN CORPUSCULAR HEMOGLOBIN 30 pg (25-34); MEAN CORPUSCULAR HGB CONC 33 g/dL (32-36); MEAN CORPUSCULAR VOLUME 91 fL (80-99); PLATELET COUNT 192 10^3/uL (130-400); WHITE BLOOD COUNT 4.8 10^3/uL (4.3-11.0)
[2022-06-24 11:42] LABS: PROTHROMBIN TIME PATIENT 13.7 SEC (12.2-14.7)
[2022-06-24 11:48] LABS: ALBUMIN 3.8 GM/DL (3.2-4.5); BILIRUBIN,TOTAL 1.3 MG/DL (0.1-1.0); CALCIUM 9.3 MG/DL (8.5-10.1); CREATININE SERUM 0.81 MG/DL (0.60-1.30); POTASSIUM 3.9 MMOL/L (3.6-5.0); TOTAL PROTEIN 6.5 GM/DL (6.4-8.2)
[2022-06-24] MEDS ORDERED: FLUT9.9S NS (11:56)
[2022-06-24] MEDS ORDERED: ASPI-1238 PO ×2 (11:56)
[2022-06-24] MEDS ORDERED: CLON0.5T4 PO (11:56)
[2022-06-24] MEDS ORDERED: IPRA3AMP31 IH (11:56)
[2022-06-24] MEDS ORDERED: CELE200C PO (11:56)
[2022-06-24] MEDS ORDERED: PRED5TAB PO (11:57)
[2022-06-24] MEDS ORDERED: HYDR12.56 PO (11:57)
[2022-06-24] MEDS ORDERED: LISI40TA9 PO (11:57)
[2022-06-24] MEDS ORDERED: MTP100TCR PO (11:58)
[2022-06-24] MEDS ORDERED: VERAPAMIL 5 MG/2 ML (CALAN) VIAL IV ONE (13:11)
[2022-06-24] MEDS ORDERED: fentaNYL INJ 100 MCG/2 ML AMP ONE (13:11)
[2022-06-24] MEDS ORDERED: MIDAZOLAM 5 MG/5 ML (VERSED) VIAL ONE (13:11)
[2022-06-24] MEDS ORDERED: HEParin 1000 UNIT/ML (10ML VIAL) FOR BOLUS ONE (13:11)
[2022-06-24] MEDS ORDERED: LIDOCAINE 1% INJ 20 ML VIAL ONE (13:12)
[2022-06-24] MEDS ORDERED: NITRO DRIP 25000 MCG/D5W 250 ML IV ONE (13:12)
--- NOTE | 2022-06-24 14:37 | Cardiac Procedure Note-CS/ASA ---
Pre-Procedure Note Pre-Op Procedure Note Date of Available H&P: Jun 02, 2022 Date H&P Reviewed: June 24, 2022 Time H&P Reviewed: 13:00 History & Physical: H&P Reviewed Changes from last HP One 10-beat run or wide-complex tachycardia on Zio monitor in late May and early June 2022 Moderate Sedation PreProcedure ASA Score 3 Airway Lungs Heart ASA score ASA 1: a normal healthy patient ASA 2: a patient with a mild systemic disease (mid diabetes, controlled hypertension, obesity ASA 3: a patient with a severe systemic disease that limits activity (angina, COPD, prior Myocardial infarction) ASA 4: a patient with an incapacitating disease that is a constant threat to life (CHF, renal failure) ASA 5: a moribund patient not expected to survive 24 hrs. (ruptured aneurysm) ASA 6: a declared brain- patient whose organs are being harvested. For emergent operations, add the letter E after the classification Mallampati Classification Grade 2 Sedation Plan Analgesia, Amnesia, Plan communicated to team members The patient is an appropriate candidate to undergo the planned procedure, sedation, and anesthesia. The patient immediately re-assessed prior to indication. REYNALDO COTTON MD FACP FAC CCDS June 24, 2022 14:37
[2022-06-24] MEDS ORDERED: FURO40TA4 PO (14:42)
[2022-06-24] MEDS ORDERED: POTA-177 PO (14:42)
--- NOTE | 2022-06-24 14:42 | Discharge Inst-Cardiology ---
Discharge Inst-Cardiac Discharge Medications New Medications: Furosemide (Furosemide) 40 Mg Tablet 40 MG PO DAILY, #30 TAB 5 Refills Potassium Chloride (Potassium Chloride) 10 Meq Tab.er.prt 10 MEQ PO DAILY, #30 TAB 5 Refills Continued Medications: Aspirin (Aspirin EC) 81 Mg Tablet.dr 81 MG PO HS, TAB Celecoxib (Celebrex) 200 Mg Capsule 200 MG PO HS, CAP Clonazepam (Clonazepam) 0.5 Mg Tablet 0.5 MG PO BID PRN for ANXIETY, TAB Fluticasone Propionate (Flonase Allergy Relief) 50 Mcg/Actuation Calera.susp 1 SPRAY NS DAILY PRN for CONGESTION, EACH Ipratropium/Albuterol Sulfate (Iprat-Albut 0.5-3(2.5) mg/3 ml) 0.5 Mg-3 Mg (2.5 Mg Base)/3 Ml Ampul.neb 3 ML IH TID PRN for SHORTNESS OF BREATH, EACH Lisinopril (Lisinopril) 40 Mg Tablet 40 MG PO HS, TAB Metoprolol Succinate (Metoprolol Succinate) 100 Mg Tab.er.24h 100 MG PO BID, TAB Prednisone (Prednisone) 5 Mg Tablet 5 MG PO HS, TAB Discontinued Medications: Hydrochlorothiazide (Hydrochlorothiazide) 12.5 Mg Tablet 12.5 MG PO HS, TAB REY[facility]LDO COTTON MD [facility] June 24, 2022 14:42
--- NOTE | 2022-06-24 14:42 | Discharge Inst-Post CATH ---
Discharge Inst-CATH/EP Post Cardiac Cath/EP D/C Inst Follow Up/Plan F/u with Dr Davila next week ACTIVITY * Go Home directly and rest. * Limit activity of the leg (or wrist if it was used) for 7 days including aerobics, swimming, jogging, bicycling, etc. * Restrict stair-climbing for 7 days if possible, if not, climb up with your no n-cath leg, then bring together on the same step. * Avoid lifting, pushing, pulling or excessive movement of the affected ext remity for 7 days. * Customary sexual activity may be resumed after 2 days-use caution not to use a position that strains or causes pain to the affected extremity. * No driving for 24 hours. * NO SMOKING. * Avoid straining for bowel movements for 7 days. * Gentle walking on level ground is allowed. * Returning to work will depend on the type of procedure and the results. Your doctor will discuss this with you. CALL YOUR DOCTOR FOR ANY OF THE FOLLOWING: *If bleeding from the puncture site occurs- Apply gentle pressure to site with clean cloth and call your doctor or EMS. * If a knot or lump forms under the skin, increases in size, or causes pain. * If bruising appears to be worsening or moving further down your leg instead of disappearing. * Temperature above 101 F. CARE OF YOUR GROIN INCISION; * Bruising or purple discoloration of the skin near the puncture site is common. * You may shower only, no bathtub bathing for 5 days. Be careful to avoid slipping as your leg may feel stiff. * If a closure device was used on your femoral artery, please see the attached guide regarding care of the device and your leg. * Leave dressing on FOR 24 hours. CARE OF YOUR WRIST INCISION; * Bruising or purple discoloration of the skin near the puncture site is common. * You may shower. * DO NOT submerge wrist. * Leave dressing on FOR 24 hours. REYNALDO DAVILA MD FACP FAC CCDS June 24, 2022 14:42
[2022-06-24] MEDS ORDERED: PATIENT MAY USE OWN MEDS, ALL PO SCH (14:45)
--- NOTE | 2022-06-24 14:50 | Cardiac Cath Report ---
CARDIAC CATHETERIZATION DATE OF PROCEDURE: 06-24-22 INDICATION: CAD, 10-beat run of WCT on ambulatory cardiac monitoring HISTORY: The patient is a 76 year old male with CAD and 10-beat run of WCT on ambulatory cardiac monitoring in late May to early June 2022 PROCEDURES PERFORMED: 1. Cor angio; 2. LHC PROCEDURE DESCRIPTION: After informed consent and in the fasting state, left heart catheterization was performed through the R radial artery utilizing a 6F TIG cath for L cors, 5F JR4 for R cor, and 5F pigtail for LHC and LV ango HEMODYNAMICS: LVEDP 30 mmHg CORONARY ANGIOGRAPHY: Left main coronary artery: Ok Left anterior descending coronary artery: Mild plaque Left circumflex coronary artery: Codominant, mild plaque Right coronary artery: Codominant, patent stent in distal RCA, 40% prox to distal RCA stent LV Angio: LVEF 60%, no wall motion abnormality in the FLYNN projection IMPRESSION: 1. Mild CAD, patent distal RCA stent 2. LVEDP 30 mmHg 3. LVEF 60% PLAN Add furosemide + KCl. D/c HCTZ. Continue other meds. Follow closely as outpt REYNALDO COTTON MD FACP [facility] June 24, 2022 14:50
[2022-06-24] MEDS ORDERED: AMLO10TA4 PO (15:29)
[2022-06-24] MEDS ORDERED: amLODIPine 10 MG (NORVASC) TAB PO ONE (15:30)
[2022-06-24] MEDS ORDERED: lisINopril 20 MG (PRINIVIL) TABLET PO ONE (15:30)
[2022-06-24] MEDS ORDERED: RT-ALBUTEROL/IPRATROPIUM 3 ML (DUONEB) VIAL IH PRN (18:30)
[2022-06-24] MEDS ORDERED: clonazePAM 0.5 MG (KlonoPIN) TAB PO PRN (18:30)
[2022-06-24] MEDS ORDERED: NON-FORMULARY MEDICATION 1 EA EA (Fluticasone Propionate (Flonase Allergy Relief) 1 SPRAY) NS PRN (18:30)
[2022-06-24] MEDS ORDERED: FLUTICASONE NASAL SPRAY (FLONASE) 16 GM BTL NS PRN (19:00)
[2022-06-24] MEDS ORDERED: predniSONE 5 MG TAB PO SCH (19:00)
[2022-06-24] MEDS ORDERED: NON-FORMULARY MEDICATION 1 EA EA (Celecoxib (Celebrex) 200 MG) PO SCH (21:00)
[2022-06-24] MEDS ORDERED: lisINopril 40 MG (PRINIVIL) TABLET PO SCH (21:00)
[2022-06-24] MEDS ORDERED: CELECOXIB 100 MG (CeleBREX) CAP PO SCH (21:00)
[2022-06-24] MEDS ORDERED: ASPIRIN E.C. 81 MG (ECOTRIN) TAB PO SCH (21:00)
[2022-06-25 00:04] VITALS: BP 151/93
[2022-06-25 04:08] VITALS: BP 145/101
[2022-06-25 04:12] LABS: BASOPHILS % (AUTO) 1 % (0-10); EOSINOPHILS % (AUTO) 1 % (0-10); HEMATOCRIT 44 % (40-54); HEMOGLOBIN 14.4 g/dL (13.3-17.7); LYMPHOCYTES # (AUTO) 1.4 10^3/uL (1.0-4.0); LYMPHOCYTES % (AUTO) 32 % (12-44); MEAN CORPUSCULAR HEMOGLOBIN 30 pg (25-34); MEAN CORPUSCULAR HGB CONC 33 g/dL (32-36); MEAN CORPUSCULAR VOLUME 91 fL (80-99); MEAN PLATELET VOLUME 9.4 fL (9.0-12.2); MONOCYTES # (AUTO) 0.3 10^3/uL (0.0-1.0); MONOCYTES % (AUTO) 7 % (0-12); NEUTROPHILS # (AUTO) 2.6 10^3/uL (1.8-7.8); NEUTROPHILS % (AUTO) 60 % (42-75); PLATELET COUNT 161 10^3/uL (130-400); WHITE BLOOD COUNT 4.4 10^3/uL (4.3-11.0)
[2022-06-25 04:41] LABS: CALCIUM 8.7 MG/DL (8.5-10.1); CREATININE SERUM 0.74 MG/DL (0.60-1.30)
[2022-06-25 04:43] LABS: LYMPHOCYTES % (MANUAL) 39 %; MONOCYTES % (MANUAL) 3 %; NEUTROPHILS % (MANUAL) 58 %; RBC MORPH NORMAL
[2022-06-25 05:00] VITALS: BP 152/94
[2022-06-25 06:00] VITALS: BP 160/115
[2022-06-25] MEDS ORDERED: amLODIPine 10 MG (NORVASC) TAB ONE (06:25)
[2022-06-25] MEDS ORDERED: KCL 10 MEQ TAB (MICRO K) PO SCH (07:00)
--- NOTE | 2022-06-25 07:56 | Progress Note - Cardiology ---
Cardiology SOAP Progress Note Subjective: Sitting up in the recliner at the bedside eating morning meal No c/o CP, SOB or palpitations No c/o syncope or near syncope No c/o discomfort at the right radial cardiac cath site Objective: I&O/Vital Signs Side: right (radial site ) Condition: extremity w/d/p, other (right radial pulse palpable) Bruising: mild bruising Constitutional: AAO x 3, well-developed, well-nourished Respiratory: No accessory muscle use, No respiratory distress; chest expansion is symmetric, chest is bilaterally symmetric, lungs clear to auscultation Cardiovascular: regular rate-rhythm; No JVD; S1 and S2 Gastrointestional: No tender; soft, round, audible bowel sounds Extremities: no lower extremity edema bilateral Neurologic/Psychiatric: grossly intact (moves all extremities) Skin: No rash on exposed areas, No ulcerations on exposed areas Results/Procedures: Labs Microbiology 06/24/22 MRSA Screen - Final, Complete MRSA not isolated A/P: Assessment: Cannot exclude one 10-beat run of nonsustained VT on Zio monitor of 06/02/22 - 06/16/22 - Cardiac cath of 06-24-22: Mild CAD, patent distal RCA stent. LVEDP 30 mmHg. LVEF 60% SOB - Echocardiogram of 12-05-21 showed LVEF 60-65%. Grade 1 diastolic dysfunction H/O PAF - documented in Dr. Kapoor's note of 2015 - Xarelto was advised CAD - per notes from Dr. Kapoor at [facility] it was a SELINA to the distal RCA in 2008 - MPI of 12-10-21 showed no evidence of ischemia or infarction. No regional wall motion abnormality. 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 - following with Dr. 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
[2022-06-25 08:00] VITALS: BP 156/89
[2022-06-25] MEDS ORDERED: AMLO-251 PO (08:55)
[2022-06-25] MEDS ORDERED: DOXA1TAB2 PO (08:57)
--- NOTE | 2022-06-25 08:57 | Discharge Inst-Cardiology ---
Discharge Inst-Cardiac Discharge Medications New Medications: Doxazosin Mesylate (Doxazosin Mesylate) 1 Mg Tablet 1 MG PO HS, #90 TAB 3 Refills Furosemide (Furosemide) 40 Mg Tablet 40 MG PO DAILY, #30 TAB 5 Refills Potassium Chloride (Potassium Chloride) 10 Meq Tab.er.prt 10 MEQ PO DAILY, #30 TAB 5 Refills Amlodipine Besylate (Amlodipine Besylate) 10 Mg Tablet 10 MG PO DAILY, #90 TAB 3 Refills Continued Medications: Aspirin (Aspirin EC) 81 Mg Tablet.dr 81 MG PO HS, TAB Celecoxib (Celebrex) 200 Mg Capsule 200 MG PO HS, CAP Clonazepam (Clonazepam) 0.5 Mg Tablet 0.5 MG PO BID PRN for ANXIETY, TAB Fluticasone Propionate (Flonase Allergy Relief) 50 Mcg/Actuation [place].susp 1 SPRAY NS DAILY PRN for CONGESTION, EACH Ipratropium/Albuterol Sulfate (Iprat-Albut 0.5-3(2.5) mg/3 ml) 0.5 Mg-3 Mg (2.5 Mg Base)/3 Ml Ampul.neb 3 ML IH TID PRN for SHORTNESS OF BREATH, EACH Lisinopril (Lisinopril) 40 Mg Tablet 40 MG PO HS, TAB Prednisone (Prednisone) 5 Mg Tablet 5 MG PO HS, TAB Discontinued Medications: Hydrochlorothiazide (Hydrochlorothiazide) 12.5 Mg Tablet 12.5 MG PO HS, TAB Metoprolol Succinate (Metoprolol Succinate) 100 Mg Tab.er.24h 100 MG PO BID, TAB New, Converted or Re-Newed RX: Transmitted to Pharmacy Patient Instructions Patient Instructions: Please schedule follow up appointment to see Dr. Davila in a week MELVIN MONET June 25, 2022 08:57
[2022-06-25] MEDS ORDERED: amLODIPine 10 MG (NORVASC) TAB PO SCH (09:00)
[2022-06-25] MEDS ORDERED: FUROSEMIDE 40 MG (LASIX) TAB PO SCH (09:00)
[2022-06-25] MEDS ORDERED: NON-FORMULARY MEDICATION 1 EA EA (Potassium Chloride 10 MEQ) PO SCH (09:00)
--- NOTE | 2022-06-25 17:03 | Progress Note - Cardiology ---
Cardiology SOAP Progress Note Subjective: No cp or palp or syncope or shortness of breath No n/v/d No focal weakness No limb discomfort No swelling Objective: I&O/Vital Signs 06/25/22 06/25/22 06/25/22 06/25/22 06:00 07:00 08:00 08:00 Temp 36.5 Pulse 58 65 60 Resp 12 14 B/P (MAP) 160/115 (130) 156/89 (111) Pulse Ox 96 O2 Delivery Nasal Cannula Nasal Cannula O2 Flow Rate 4.00 4.00 06/25/22 08:00 Pulse Ox 90 O2 Delivery Room Air 06/25/22 00:00 Intake Total 1286 ml Balance 1286 ml Side: right (radial site ) Condition: extremity w/d/p, other (right radial pulse palpable) Bruising: mild bruising Constitutional: AAO x 3, well-developed, well-nourished Respiratory: No accessory muscle use, No respiratory distress; chest expansion is symmetric, chest is bilaterally symmetric, lungs clear to auscultation Cardiovascular: regular rate-rhythm; No JVD; S1 and S2 Gastrointestional: No tender; soft, round, audible bowel sounds Extremities: no lower extremity edema bilateral Neurologic/Psychiatric: grossly intact (moves all extremities) Skin: No rash on exposed areas, No ulcerations on exposed areas Results/Procedures: Labs Laboratory Tests 06/25/22 03:50: White Blood Count 4.4, Red Blood Count 4.83, Hemoglobin 14.4, Hematocrit 44, Mean Corpuscular Volume 91, Mean Corpuscular Hemoglobin 30, Mean Corpuscular Hemoglobin Concent 33, Red Cell Distribution Width 13.0, Platelet Count 161, Mean Platelet Volume 9.4, Immature Granulocyte % (Auto) 0, Neutrophils (%) (Auto) 60, Lymphocytes (%) (Auto) 32, Monocytes (%) (Auto) 7, Eosinophils (%) (Auto) 1, Basophils (%) (Auto) 1, Neutrophils # (Auto) 2.6, Lymphocytes # (Auto) 1.4, Monocytes # (Auto) 0.3, Eosinophils # (Auto) 0.0, Basophils # (Auto) 0.0, Immature Granulocyte # (Auto) 0.0, Neutrophils % (Manual) 58, Lymphocytes % (Manual) 39, Monocytes % (Manual) 3, Blood Morphology Comment NORMAL, Sodium Level 137, Potassium Level 4.0, Chloride Level 103, Carbon Dioxide Level 24, Anion Gap 10, Blood Urea Nitrogen 11, Creatinine 0.74, Estimat Glomerular Filtr ation Rate 94, BUN/Creatinine Ratio 15, Glucose Level 113H, Calcium Level 8.7 Microbiology 06/24/22 MRSA Screen - Final, Complete MRSA not isolated Laboratory Tests 06/24/22 11:23 06/25/22 03:50 A/P: Assessment: Cannot exclude one 10-beat run of nonsustained VT on Zio monitor of 06/02/22 - 06/16/22 - Cardiac cath of 06-24-22: Mild CAD, patent distal RCA stent. LVEDP 30 mmHg. LVEF 60% SOB - Echocardiogram of 12-05-21 showed LVEF 60-65%. Grade 1 diastolic dysfunction H/O PAF - documented in Dr. Kapoor's note of 2015 - Xarelto was advised SSS and sinus bernard and Wenckebach AV block, resolved with cessation of beta- blockers on 06/24/22 CAD - per notes from Dr. Kapoor at [facility] it was a SELINA to the distal RCA in 2008 - MPI of 12-10-21 showed no evidence of ischemia or infarction. No regional wall motion abnormality. 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
== END 2022-06-25 11:05 | disposition home or self-care (01) ==
LOC: CATH 10:48 → CSD 17:08 → CATH 06-25 11:05
PROVIDERS: ATTEND Internal Medicine Cardiovascular Disease
DX: I25.10 Atherosclerotic heart disease of native coronary artery without angina pectoris (principal); I48.0 Paroxysmal atrial fibrillation; I10 Essential (primary) hypertension; I71.43 Infrarenal abdominal aortic aneurysm, without rupture; J44.9 Chronic obstructive pulmonary disease, unspecified; R06.09 Other forms of dyspnea; R22.43 Localized swelling, mass and lump, lower limb, bilateral; H54.40 Blindness, one eye, unspecified eye; D75.1 Secondary polycythemia; E78.5 Hyperlipidemia, unspecified; F17.210 Nicotine dependence, cigarettes, uncomplicated; Z79.899 Other long term (current) drug therapy
CPT/HCPCS: 80048; 80053; 80061; 85007; 85027 ×2; 85610; 85730; 87081; 93005; 93458; 94640; C1894; 36415

== ENCOUNTER → 2022-07-03 | Outpatient (CLI) | payer MEDICARE ==
[~2022-07-03] MED LIST changes: +AMLO-251 PO; +AMLO10TA4 PO; +ASPI-1238 PO; +CELE200C PO; +CLON0.5T4 PO; +DOXA1TAB2 PO; +FLUT9.9S NS; +FURO40TA4 PO; +HYDR12.56 PO; +IPRA3AMP31 IH; +LISI40TA9 PO; +MTP100TCR PO; +POTA-177 PO; +PRED5TAB PO
[2022-07-03 11:56] LABS: CALCIUM 9.4 MG/DL (8.5-10.1); CREATININE SERUM 0.81 MG/DL (0.60-1.30)
[2022-07-03 12:08] LABS: MAGNESIUM 2.2 MG/DL (1.6-2.4)
== END ==
LOC: LAB FS 10:55
PROVIDERS: ATTEND Internal Medicine Cardiovascular Disease
DX: R06.09 Other forms of dyspnea (principal)
CPT/HCPCS: 36415; 80048; 83735; 83880

== ENCOUNTER 2022-07-14 12:51 | Outpatient (RCR) | payer MEDICARE | END 2022-08-08 | disposition home or self-care (01) | LOC: ONC 12:51 | PROVIDERS: ATTEND Internal Medicine Hematology & Oncology | DX: D75.1 Secondary polycythemia (principal); I10 Essential (primary) hypertension ==

== ENCOUNTER 2022-07-23 15:16 | Emergency (ER) | payer MEDICARE ==
--- NOTE | 2022-07-23 15:45 | ED Cardiac General ---
History of Present Illness General Chief Complaint: Cardiac/General Problems Stated Complaint: ELEV BP Source: patient, family Exam Limitations: no limitations History of Present Illness Date Seen by Provider: Jul 23, 2022 Time Seen by Provider: 15:21 Initial Comments 76-year-old male with past medical history most notable for hypertension, CAD, COPD, temporal arteritis coming in due to elevated blood pressure. He was doing respiratory therapy for his COPD, they took his blood pressure, it was 200/100. He went home, took his blood pressure again it was still elevated. At this time he came to the ER. He is asymptomatic he states. No chest pain, no shortness of breath, headache, vision changes, weakness, numbness, urinary changes, or any other concerns. He is on lisinopril 40 mg daily, doxazosin 1 mg twice a day, and furosemide for blood pressure. A couple weeks ago he was taken off of amlodipine due to potentially causing his peripheral edema. His primary care provider called in a new prescription for carvedilol just prior to him coming to the ER. Allergies and Home Medications Allergies Coded Allergies: No Known Drug Allergies (Unverified , 03/02/21) Patient Home Medication List Home Medication List Reviewed: Yes Amlodipine Besylate (Amlodipine Besylate) 10 Mg Tablet, 10 MG PO DAILY Prescribed by: MELVIN MONET on 06/25/22 0855 Aspirin (Aspirin EC) 81 Mg Tablet.dr, 81 MG PO HS, (Reported) Entered as Reported by: RAMIREZ LINN on 06/24/22 1156 Celecoxib (Celebrex) 200 Mg Capsule, 200 MG PO HS, (Reported) Entered as Reported by: RAMIREZ LINN on 06/24/22 1156 Clonazepam (Clonazepam) 0.5 Mg Tablet, 0.5 MG PO BID PRN for ANXIETY, (Reported) Entered as Reported by: RAMIREZ LINN on 06/24/22 1156 Doxazosin Mesylate (Doxazosin Mesylate) 1 Mg Tablet, 1 MG PO HS Prescribed by: MELVIN MONET on 06/25/22 0857 Fluticasone Propionate (Flonase Allergy Relief) 50 Mcg/Actuation [place].susp, 1 SPRAY NS DAILY PRN for CONGESTION, (Reported) Entered as Reported by: RAMIREZ LINN on 06/24/22 1156 Furosemide (Furosemide) 40 Mg Tablet, 40 MG PO DAILY Prescribed by: REYNALDO COTTON on 06/24/22 1442 Ipratropium/Albuterol Sulfate (Iprat-Albut 0.5-3(2.5) mg/3 ml) 0.5 Mg-3 Mg (2.5 Mg Base)/3 Ml Ampul.neb, 3 ML IH TID PRN for SHORTNESS OF BREATH, (Reported) Entered as Reported by: RAMIREZ LINN on 06/24/22 1156 Lisinopril (Lisinopril) 40 Mg Tablet, 40 MG PO HS, (Reported) Entered as Reported by: RAMIREZ LINN on 06/24/22 1157 Potassium Chloride (Potassium Chloride) 10 Meq Tab.er.prt, 10 MEQ PO DAILY Prescribed by: REYNALDO COTTON on 06/24/22 1442 Prednisone (Prednisone) 5 Mg Tablet, 5 MG PO HS, (Reported) Entered as Reported by: RAMIREZ LINN on 06/24/22 1157 Review of Systems Review of Systems Constitutional: No fever EENTM: No Symptoms Reported Respiratory: No Symptoms Reported Cardiovascular: See HPI Gastrointestinal: No Symptoms Reported Genitourinary: No Symptoms Reported Musculoskeletal: no symptoms reported Skin: no symptoms reported Psychiatric/Neurological: No Symptoms Reported Past Wlqglau-Gosxft-Mnpxds Hx Patient Social History Tobacco Use?: Yes Tobacco type used: Cigarettes Smoking Status: Current Everyday Smoker Use of E-Cig and/or Vaping dev: No Substance use?: No Alcohol Use?: No Pt feels they are or have been: No Immunizations Up To Date First/Initial COVID19 Vaccinat: 03/20/20 Second COVID19 Vaccination Cesar: 04/17/20 Third COVID19 Vaccination Date: 10/16/20 Past Medical History Surgery/Hospitalization HX: CAD, HTN, anxiety Surgeries: Yes Cardiac, Coronary Stent COPD Coronary Artery Disease, Hypertension Physical Exam Vital Signs Capillary Refill : Less Than 3 Seconds Height, Weight, BMI Height: '" Weight: lbs. oz. 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 The patient's blood pressure was elevated on presentation but otherwise vitals were stable and he was in no acute distress. He has no signs of heart attack including no chest pain, no signs of pulmonary edema including no shortness of breath that is unusual, normal oxygen saturation here, no signs of stroke clinically. Urinating normally and has regular blood work drawn in regards to his creatinine. Additionally, he just had a prescription sent in right before he came to the ER. I will recommend that he starts that. I will also recommend that he has follow-up as an outpatient. Departure Impression Primary Impression: Asymptomatic hypertension Disposition: 01 HOME, SELF-CARE Condition: Stable Departure-Patient Inst. Decision time for Depature: 15:50 Referrals: REHAN ROCA MD (PCP/Family) Primary Care Physician Patient Instructions: High Blood Pressure ED Add. Discharge Instructions: We do think it is a good idea to take your blood pressure regularly and write it down into a journal. Also begin taking the Coreg that was prescribed to you. If you have any severe chest pain, severe shortness of breath, worst headache of your life, strokelike symptoms like weakness or numbness, we would want you to come to the ER in those instances. If you are in a pinch and your blood pressure is very elevated, it would likely be okay to take an amlodipine in that instance since your swelling has not improved without it, it is possible it was not the cause. Work/School Note: Family Work Note Patient Received Medical Care In the Emergency Department On: Jul 23, 2022 Patient Will Be Able to Return to Work/School On: Jul 24, 2022 ROQUE ALEJO MD Jul 23, 2022 15:45
[2022-07-23 15:52] VITALS: BP 190/112
== END 2022-07-23 15:52 | disposition home or self-care (01) ==
LOC: EDUNIT# 15:16 → ER FS 15:17
DX: I10 Essential (primary) hypertension (principal); F17.210 Nicotine dependence, cigarettes, uncomplicated; Z79.899 Other long term (current) drug therapy
CPT/HCPCS: 99281

== ENCOUNTER → 2022-10-15 | Outpatient (CLI) | payer MEDICARE ==
[2022-10-15 11:27] LABS: BASOPHILS % (AUTO) 1 % (0-10); EOSINOPHILS # (AUTO) 0.1 10^3/uL (0.0-0.3); EOSINOPHILS % (AUTO) 2 % (0-10); HEMATOCRIT 48 % (40-54); HEMOGLOBIN 16.1 g/dL (13.3-17.7); LYMPHOCYTES # (AUTO) 2.6 10^3/uL (1.0-4.0); LYMPHOCYTES % (AUTO) 55 % (12-44); MEAN CORPUSCULAR HEMOGLOBIN 31 pg (25-34); MEAN CORPUSCULAR HGB CONC 34 g/dL (32-36); MEAN CORPUSCULAR VOLUME 93 fL (80-99); MEAN PLATELET VOLUME 8.7 fL (9.0-12.2); MONOCYTES # (AUTO) 0.5 10^3/uL (0.0-1.0); MONOCYTES % (AUTO) 11 % (0-12); NEUTROPHILS # (AUTO) 1.4 10^3/uL (1.8-7.8); NEUTROPHILS % (AUTO) 31 % (42-75); PLATELET COUNT 174 10^3/uL (130-400); WHITE BLOOD COUNT 4.7 10^3/uL (4.3-11.0)
[2022-10-15 12:22] LABS: POTASSIUM 4.3 MMOL/L (3.6-5.0)
[2022-10-15 12:23] LABS: ALBUMIN 3.9 GM/DL (3.2-4.5); CALCIUM 9.3 MG/DL (8.5-10.1); CREATININE SERUM 0.93 MG/DL (0.60-1.30); TOTAL PROTEIN 6.5 GM/DL (6.4-8.2)
== END ==
LOC: LAB FS 10:41
PROVIDERS: ATTEND Internal Medicine Hematology & Oncology
DX: R71.8 Other abnormality of red blood cells (principal)
CPT/HCPCS: 36415; 80053; 83540; 83550; 85025

== ENCOUNTER → 2022-12-22 | Outpatient (CLI) | payer MEDICARE ==
[2022-12-22 09:50] LABS: BASOPHILS % (AUTO) 0 % (0-10); EOSINOPHILS % (AUTO) 1 % (0-10); HEMATOCRIT 50 % (40-54); HEMOGLOBIN 16.7 g/dL (13.3-17.7); LYMPHOCYTES # (AUTO) 2.6 10^3/uL (1.0-4.0); LYMPHOCYTES % (AUTO) 51 % (12-44); MEAN CORPUSCULAR HEMOGLOBIN 31 pg (25-34); MEAN CORPUSCULAR HGB CONC 34 g/dL (32-36); MEAN CORPUSCULAR VOLUME 93 fL (80-99); MEAN PLATELET VOLUME 8.7 fL (9.0-12.2); MONOCYTES # (AUTO) 0.5 10^3/uL (0.0-1.0); MONOCYTES % (AUTO) 9 % (0-12); NEUTROPHILS # (AUTO) 1.9 10^3/uL (1.8-7.8); NEUTROPHILS % (AUTO) 38 % (42-75); PLATELET COUNT 218 10^3/uL (130-400)
[2022-12-22 10:23] LABS: POTASSIUM 3.8 MMOL/L (3.6-5.0)
[2022-12-22 10:24] LABS: ALBUMIN 3.7 GM/DL (3.2-4.5); BILIRUBIN,TOTAL 1.3 MG/DL (0.1-1.0); CREATININE SERUM 0.88 MG/DL (0.60-1.30); TOTAL PROTEIN 6.8 GM/DL (6.4-8.2)
== END ==
LOC: LAB FS 09:28
PROVIDERS: ATTEND Internal Medicine Hematology & Oncology
DX: D75.1 Secondary polycythemia (principal)
CPT/HCPCS: 36415; 80053; 82728; 83540; 83550; 85025

== ENCOUNTER 2022-12-25 13:14 | Outpatient (RCR) | payer MEDICARE | END 2023-01-08 | disposition home or self-care (01) | LOC: ONC 13:14 | PROVIDERS: ATTEND Internal Medicine Hematology & Oncology | DX: D75.1 Secondary polycythemia (principal); I10 Essential (primary) hypertension; Z72.0 Tobacco use ==